=== PATIENT | female | born 1955 | race Caucasian/White ===

== ENCOUNTER 2016-08-05 19:53 | Emergency (ER) | payer MEDICAID ==
--- NOTE | ~2016-08-05 | ER ---
[facility] AGE: 61 Y [address] ROOM: [place] [address] LOCATION: ED ADMIT DATE: 08/05/2016 ER/Outpatient Report DISCHARGE DATE: 08/05/2016 FAMILY PHYSICIAN: Femi Tanner MD ATTENDING PHYSICIAN: Tanya Ramos CHIEF COMPLAINT: Right arm injury. TIME OF THE PATIENT ARRIVAL: 1952 hours. TIME OF THE PATIENT EVALUATION: 2039 hours. HISTORY OF PRESENT ILLNESS: This is a 61-year-old female who presents to the ER. She states that she was walking in her yard and just tripped and fell on an outstretched right wrist. She states that she had been drinking some wine spritzers for her birthday. She states that she did not hurt anything else during the fall and she denies any other problems at this time. She states that she has fractured this wrist in the past. ALLERGIES: NO KNOWN ALLERGIES. MEDICATIONS: Please see medication list nurse's notes. PAST MEDICAL HISTORY: Fibromyalgia, osteoarthritis. PAST SURGERIES: Kidney surgery, shoulder surgery, and . SOCIAL HISTORY: Drinks alcohol. Denies any smoking use. REVIEW OF SYSTEMS: CONSTITUTIONAL: Denies any change in weight or fatigue. MUSCULOSKELETAL: Complaining of right wrist pain. HEMATOLOGIC: No easy bruising or bleeding. SKIN: No lesions or rashes. PHYSICAL EXAMINATION: [facility] AGE: 61 Y [address] ROOM: [place] [address] LOCATION: ED ADMIT DATE: 08/05/2016 ER/Outpatient Report DISCHARGE DATE: 08/05/2016 FAMILY PHYSICIAN: Femi Tanner MD ATTENDING PHYSICIAN: Tanya Ramos VITAL SIGNS: Height 5 feet, 3 inches stated, weight 99.4 kg taken, blood pressure is 132/93, pulse 91, respirations 16, temperature 98.7 degrees tympanically. Her [place] Coma Score is 15. GENERAL: Alert, calm, well-developed female, in [id number] distress. HEENT: Head: Normocephalic. She does display moist mucous membranes. EXTREMITIES: No clubbing or cyanosis. She does have decreased range of motion of her right wrist, secondary to pain. She does have pain with palpation over the distal radius and ulna with palpation. She has a good radial pulse. She has good sensation distally. She is able to move her fingers. She has no tenderness over her metacarpals. She has no tenderness in her right elbow and no tenderness in her right clavicle. LABORATORY DATA: Labs none were done. X-rays of the right wrist shows a Colles fracture and distal right radius fracture. IMPRESSION: Right wrist fracture. ASSESSMENT AND PLAN: The patient did rest comfortably in her entire stay. I did place a sugar-tong splint to the arm and placed her in an arm sling for support. I will dismiss her to home with a prescription for Ramsey to use as directed. She needs to ice and elevate her arm and she may alternate her pain medication as needed with ibuprofen and she should follow up with her orthopedic of choice this week. The patient and the patient's family understand and agrees with care. FRAN LUIS PA-C FOR MD MATTHEW RASHID/momo /[id number] d: 08/06/16 0150 t: 08/14/16 1838, OUTPATIENT REPORT
== END 2016-08-05 21:50 | disposition disaster alternative care site (69) ==
LOC: GMED 19:53
PROC: 2W3CX1Z Immobilization of Right Lower Arm using Splint (ICD-10-PCS; principal; 2016-08-05)
DX: S52.531A Colles' fracture of right radius, initial encounter for closed fracture (principal); M19.90 Unspecified osteoarthritis, unspecified site; M79.7 Fibromyalgia; W01.0XXA Fall on same level from slipping, tripping and stumbling without subsequent striking against object, initial encounter